=== PATIENT | male | born 2000 | race Caucasian/White ===

== ENCOUNTER → 2021-08-01 | Outpatient (CLI) | payer OTHER | END | disposition home or self-care (01) | LOC: MRI 12:53 | PROVIDERS: ATTEND Student in an Organized Health Care Education/Training Program | DX: R43.1 Parosmia (principal) ==

== ENCOUNTER → 2021-09-21 | Outpatient (CLI) | payer OTHER | END | disposition home or self-care (01) | LOC: MRI 13:00 | PROVIDERS: ATTEND Nurse Practitioner Gerontology | DX: M43.24 Fusion of spine, thoracic region (principal); M48.04 Spinal stenosis, thoracic region ==